=== PATIENT | female | born 1970 | race Asian ===

== ENCOUNTER 2024-01-18 14:49 | Emergency (ER) | payer OTHER ==
[~2024-01-18] VITALS: Ht 160 cm; Wt 54.4 kg
[2024-01-18 15:08] VITALS: BP_SYST 96; PULSE 89; RESP 18; TEMP 97.8; O2SAT 95
[2024-01-18] MEDS ORDERED: GUAI5SYR PO (17:12)
[2024-01-18] MEDS ORDERED: ACET-2634 PO (17:20)
[2024-01-18 18:00] LABS: INFLUENZA TYPE A Negative (NEGATIVE); INFLUENZA TYPE B NEGATIVE (NEGATIVE)
[2024-01-18 18:01] LABS: COVID19 ANTIGEN SOFIA FIA NEGATIVE (NEGATIVE)
[2024-01-18 18:11] VITALS: BP_SYST 115; PULSE 78; RESP 18; TEMP 97.8; O2SAT 97
== END 2024-01-18 17:43 | disposition home or self-care (01) ==
LOC: SED 14:49
DX: J06.9 Acute upper respiratory infection, unspecified (principal); R05.9 Cough, unspecified; Z88.0 Allergy status to penicillin; Z79.899 Other long term (current) drug therapy; Z20.822 Contact with and (suspected) exposure to COVID-19
CPT/HCPCS: 36415; 71045; 99284